=== PATIENT | female | born 1930 | race Caucasian/White ===

== ENCOUNTER 2016-09-22 09:35 | Inpatient (IN) | payer OTHER ==
[~2016-09-22] VITALS: Ht 167.6 cm; Wt 63.0 kg
[~2016-09-22 09:35] MED LIST: ASPI81CH43 PO; FURO40TA PO; METO-169 PO; POT20T PO
[2016-09-22] MEDS ORDERED: SODIUM CHLORIDE 0.9% 1,000 ML IVB ONE (11:51)
[2016-09-22 12:21] LABS: Basophils # (auto) 0.1 uL; Basophils % (auto) 0.6 % (0.0-2.0); CONDITION Y; Eosinophils # (auto) 0 uL; Eosinophils % (auto) 0.4 % (0.0-7.0); Hematocrit 41.6 % (36.0-46.0); Hemoglobin 13.8 g/dL (12.2-16.2); Lymphocytes # (auto) 1.2 uL; Lymphocytes % (auto) 10.4 % (10.0-50.0); Mean Corpuscular Hemoglobin 32.1 pg (28.0-32.0); Mean Corpuscular Hgb Conc. 33.2 g/dL (32.0-36.0); Mean Corpuscular Volume 96.9 fL (80.0-100.0); Monocytes # (auto) 0.8 uL; Monocytes % (auto) 6.7 % (0.0-12.0); Neutrophils # (auto) 9.5 uL; Neutrophils % (auto) 81.9 % (37.0-80.0); Platelet Count (auto) 213 10^3/uL (140-450); Red Cell Distribution Width 13.6 % (11.6-16.0); White Blood Cell 11.6 10^3/uL (4.4-10.8)
[2016-09-22 12:35] LABS: INR 1.22 (0.9-1.15); Partial Thromboplastin Time 25.2 sec (22.64-33.71)
[2016-09-22 12:45] LABS: Prothrombin Time 13.3 sec (9.37-12.3)
[2016-09-22 12:52] LABS: Albumin 3.3 g/dL (3.4-5.0); Alkaline Phosphatase 79 U/L (45-117); Anion Gap 6 (5-15); Aspartate Aminotransferase 18 U/L (15-37); BUN/Creatinine Ratio 47.9; Bilirubin, Total 0.7 mg/dL (0.2-1.0); Blood Urea Nitrogen 68 mg/dL (7-18); Calcium 9.2 mg/dL (8.5-10.1); Carbon Dioxide 30 mmol/L (21-32); Chloride 108 mmol/L (98-107); GFR African American 45 mL/min; GFR Non-African American 37 mL/min; Glucose 122 mg/dL (74-106); Magnesium 3.2 mg/dL (1.6-2.6); Potassium 4.7 mmol/L (3.5-5.1); Sodium 144 mmol/L (136-145); Total Protein 7.5 g/dL (6.4-8.2)
[2016-09-22] MEDS ORDERED: cefTRIAXone 1GM/50ML D5W 50 ML IV ONE (18:00)
[2016-09-22] MEDS ORDERED: HYDROcodone-ACET 5/325MG TAB PO PRN (18:15)
[2016-09-22] MEDS ORDERED: DEXTROSE (50%) 50ML SYRG IV PRN (18:15)
[2016-09-22] MEDS ORDERED: ACETAMINOPHEN 325 MG TAB PO PRN (18:15)
[2016-09-22] MEDS ORDERED: FUROSEMIDE 20 MG TAB PO ONE (18:15)
[2016-09-22] MEDS ORDERED: DOCUSATE SOD 100 MG CAP PO PRN (18:15)
[2016-09-22 19:17] LABS: B-Type Natriuretic Peptide 65.37 pg/mL (0-100)
[2016-09-22] MEDS: ENOXAPARIN SOD 30 MG/0.3 ML SYRINGE SC SCH (19:23)
[2016-09-22] MEDS: FAMOTIDINE 20 MG TAB PO SCH (19:23)
[2016-09-22] MEDS: ZINC SULFATE 220 MG CAP PO SCH (19:27)
[2016-09-22 19:32] LABS: Temperature: 23.3 C (20.0-25.0)
[2016-09-22] MEDS: ASCORBIC ACID 500 MG TAB PO SCH (21:57)
[2016-09-22] MEDS: SODIUM CHLOR 0.9% PF (SALINE LOCK) 10ML VIAL IV SCH (21:57)
[2016-09-22] MEDS: ACCU-CHEK COMFORT CURVE STRIP VI SCH (21:57)
[2016-09-22] MEDS: CLINDAMYCIN 300MG IV 50 ML IV SCH (21:57)
[2016-09-22] MEDS: InsuLIN REG 1unit/0.01ml Soln (100units/ml) SC SCH (21:57)
[2016-09-22] MEDS ORDERED: ALBUMIN 5% 250 ML IV ONE (23:30)
[2016-09-23 00:20] LABS: Urine Bilirubin Negative (Negative); Urine Blood Negative /uL (Negative); Urine Color Yellow (Yellow); Urine Glucose Normal (Normal); Urine Ketone TRACE (Negative); Urine Nitrite Negative (Negative); Urine RBC 1 /hpf (0 - 4); Urine Squamous Epithelial Cell FEW /hpf (<5); Urine Urobilinogen Normal (Negative)
[2016-09-23] MEDS ORDERED: PHENYLEPHRINE HCL 10 MG/ML VL ONE (00:50)
[2016-09-23] MEDS: PHENYLEPHRINE INJ 20 MG in SODIUM CHL 0.9% 250 ML IV SCH ×3 (01:08→15:49)
[2016-09-23 03:52] LABS: Basophils # (auto) 0 uL; Basophils % (auto) 0.1 % (0.0-2.0); CONDITION Y; Eosinophils # (auto) 0.1 uL; Eosinophils % (auto) 1.1 % (0.0-7.0); Hematocrit 37.9 % (36.0-46.0); Hemoglobin 12.6 g/dL (12.2-16.2); Lymphocytes # (auto) 1.5 uL; Lymphocytes % (auto) 15.4 % (10.0-50.0); Mean Corpuscular Hemoglobin 32.1 pg (28.0-32.0); Mean Corpuscular Hgb Conc. 33.3 g/dL (32.0-36.0); Mean Corpuscular Volume 96.3 fL (80.0-100.0); Mean Platelet Volume 9.2 fL (7.4-10.4); Monocytes # (auto) 0.9 uL; Monocytes % (auto) 8.6 % (0.0-12.0); Neutrophils # (auto) 7.5 uL; Neutrophils % (auto) 74.8 % (37.0-80.0); Platelet Count (auto) 225 10^3/uL (140-450)
[2016-09-23 04:47] LABS: Albumin 2.9 g/dL (3.4-5.0); Calcium 8.2 mg/dL (8.5-10.1); Potassium 3.6 mmol/L (3.5-5.1)
[2016-09-23 04:48] LABS: BUN/Creatinine Ratio 45.5
[2016-09-23 04:52] LABS: Bilirubin, Total 0.6 mg/dL (0.2-1.0); Total Protein 6.5 g/dL (6.4-8.2)
[2016-09-23] MEDS: CLINDAMYCIN 300MG IV 50 ML IV SCH ×3 (06:09→22:00)
[2016-09-23] MEDS: SODIUM CHLOR 0.9% PF (SALINE LOCK) 10ML VIAL IV SCH ×3 (06:09→22:00)
[2016-09-23] MEDS: InsuLIN REG 1unit/0.01ml Soln (100units/ml) SC SCH ×4 (06:49→22:00)
[2016-09-23] MEDS: ACCU-CHEK COMFORT CURVE STRIP VI SCH ×4 (06:49→22:00)
[2016-09-23] MEDS: cefTRIAXone 1GM/50ML D5W 50 ML IV SCH (08:13)
[2016-09-23] MEDS: Boost Glucose Control 8 Ounces PO SCH ×3 (08:42→18:34)
[2016-09-23] MEDS: MULTIPLE VITAMIN TAB PO SCH (11:12)
[2016-09-23] MEDS: FAMOTIDINE 20 MG TAB PO SCH (11:12)
[2016-09-23] MEDS: ASCORBIC ACID 500 MG TAB PO SCH ×2 (11:12→22:00)
[2016-09-23] MEDS: POTASSIUM CHL 10 Meq TABLET PO SCH (11:13)
[2016-09-23] MEDS: FUROSEMIDE 20 MG TAB PO SCH (11:13)
[2016-09-23] MEDS: ZINC SULFATE 220 MG CAP PO SCH (11:13)
[2016-09-23] MEDS: ENOXAPARIN SOD 30 MG/0.3 ML SYRINGE SC SCH (11:14)
[2016-09-23] MEDS ORDERED: ALBUMIN 5% 250 ML IV ONE (21:30)
[2016-09-24] MEDS: PHENYLEPHRINE INJ 20 MG in SODIUM CHL 0.9% 250 ML IV SCH ×3 (00:08→18:23)
[2016-09-24] MEDS: CLINDAMYCIN 300MG IV 50 ML IV SCH (06:00)
[2016-09-24 06:10] LABS: Basophils # (auto) 0 uL; Basophils % (auto) 0.3 % (0.0-2.0); CONDITION Y; Eosinophils # (auto) 0.3 uL; Eosinophils % (auto) 3.5 % (0.0-7.0); Hematocrit 38.7 % (36.0-46.0); Lymphocytes % (auto) 21.7 % (10.0-50.0); Mean Corpuscular Hemoglobin 32.3 pg (28.0-32.0); Mean Corpuscular Hgb Conc. 33.7 g/dL (32.0-36.0); Mean Corpuscular Volume 95.8 fL (80.0-100.0); Mean Platelet Volume 8.8 fL (7.4-10.4); Monocytes # (auto) 0.9 uL; Monocytes % (auto) 9.4 % (0.0-12.0); Neutrophils # (auto) 6.1 uL; Neutrophils % (auto) 65.1 % (37.0-80.0); Platelet Count (auto) 203 10^3/uL (140-450); Red Cell Distribution Width 13.7 % (11.6-16.0); White Blood Cell 9.3 10^3/uL (4.4-10.8)
[2016-09-24] MEDS: SODIUM CHLOR 0.9% PF (SALINE LOCK) 10ML VIAL IV SCH ×3 (06:18→22:00)
[2016-09-24 06:29] LABS: BUN/Creatinine Ratio 31.3; Calcium 8.4 mg/dL (8.5-10.1); Potassium 3.6 mmol/L (3.5-5.1)
[2016-09-24] MEDS: InsuLIN REG 1unit/0.01ml Soln (100units/ml) SC SCH ×5 (06:32→22:00)
[2016-09-24] MEDS: ACCU-CHEK COMFORT CURVE STRIP VI SCH ×5 (06:32→22:00)
[2016-09-24] MEDS: Boost Glucose Control 8 Ounces PO SCH ×3 (08:03→18:00)
[2016-09-24] MEDS: cefTRIAXone 1GM/50ML D5W 50 ML IV SCH (10:00)
[2016-09-24] MEDS: FUROSEMIDE 20 MG TAB PO SCH (10:28)
[2016-09-24] MEDS: FAMOTIDINE 20 MG TAB PO SCH (10:28)
[2016-09-24] MEDS: MULTIPLE VITAMIN TAB PO SCH (10:28)
[2016-09-24] MEDS: POTASSIUM CHL 10 Meq TABLET PO SCH (10:28)
[2016-09-24] MEDS: ZINC SULFATE 220 MG CAP PO SCH (10:28)
[2016-09-24] MEDS: ASCORBIC ACID 500 MG TAB PO SCH ×2 (10:29→22:00)
[2016-09-24] MEDS: ENOXAPARIN SOD 30 MG/0.3 ML SYRINGE SC SCH (10:29)
[2016-09-24] MEDS ORDERED: SOD CHL 0.45% 1,000 ML IV ONE (13:45)
[2016-09-25] MEDS: PHENYLEPHRINE INJ 20 MG in SODIUM CHL 0.9% 250 ML IV SCH ×4 (02:43→18:23)
[2016-09-25] MEDS: SODIUM CHLOR 0.9% PF (SALINE LOCK) 10ML VIAL IV SCH ×3 (06:00→22:26)
[2016-09-25 06:55] LABS: Basophils # (auto) 0 uL; Basophils % (auto) 0.3 % (0.0-2.0); CONDITION Y; Eosinophils # (auto) 0.3 uL; Eosinophils % (auto) 2.8 % (0.0-7.0); Hematocrit 40.1 % (36.0-46.0); Hemoglobin 13.8 g/dL (12.2-16.2); Lymphocytes # (auto) 2.3 uL; Lymphocytes % (auto) 22.8 % (10.0-50.0); Mean Corpuscular Hemoglobin 32.7 pg (28.0-32.0); Mean Corpuscular Hgb Conc. 34.3 g/dL (32.0-36.0); Mean Corpuscular Volume 95.3 fL (80.0-100.0); Mean Platelet Volume 8.8 fL (7.4-10.4); Monocytes # (auto) 0.8 uL; Monocytes % (auto) 8.6 % (0.0-12.0); Neutrophils # (auto) 6.5 uL; Neutrophils % (auto) 65.5 % (37.0-80.0); Platelet Count (auto) 210 10^3/uL (140-450); White Blood Cell 9.9 10^3/uL (4.4-10.8)
[2016-09-25 07:06] LABS: Calcium 8.3 mg/dL (8.5-10.1)
[2016-09-25] MEDS: ACCU-CHEK COMFORT CURVE STRIP VI SCH ×2 (07:45→11:30)
[2016-09-25] MEDS: InsuLIN REG 1unit/0.01ml Soln (100units/ml) SC SCH ×2 (07:45→12:09)
[2016-09-25] MEDS: Boost Glucose Control 8 Ounces PO SCH ×3 (08:30→18:23)
[2016-09-25] MEDS ORDERED: IOHEXOL 350 MG/ML 100ML IJ ONE (08:52)
[2016-09-25] MEDS: cefTRIAXone 1GM/50ML D5W 50 ML IV SCH (10:00)
[2016-09-25] MEDS: SOD CHL 0.45% 1,000 ML IV SCH ×2 (10:24→18:51)
[2016-09-25] MEDS: FAMOTIDINE 20 MG TAB PO SCH (10:30)
[2016-09-25] MEDS: ENOXAPARIN SOD 30 MG/0.3 ML SYRINGE SC SCH (10:30)
[2016-09-25] MEDS: MULTIPLE VITAMIN TAB PO SCH (10:30)
[2016-09-25] MEDS: ASCORBIC ACID 500 MG TAB PO SCH ×2 (10:30→22:26)
[2016-09-25] MEDS: ZINC SULFATE 220 MG CAP PO SCH (10:30)
[2016-09-25] MEDS: ALBUMIN 25% 100 ML IV SCH ×2 (12:41→22:26)
[2016-09-25 15:26] LABS: Vitamin B12 979 pg/mL (211-911)
[2016-09-25 15:40] LABS: Temperature: 23.3 C (20.0-25.0)
[2016-09-25] MEDS: ONDANSETRON HCL 4 MG/2 ML VIAL IV PRN (19:07)
[2016-09-25] MEDS: APIXABAN 5 MG TAB PO SCH (22:26)
[2016-09-26] VITALS (58 sets, daily range): BP systolic 80–131; BP diastolic 35–71
[2016-09-26] MEDS: ONDANSETRON HCL 4 MG/2 ML VIAL IV PRN ×2 (00:54→01:30)
[2016-09-26] MEDS: TEMAZEPAM 15 MG CAP PO PRN (02:06)
[2016-09-26] MEDS: PHENYLEPHRINE INJ 20 MG in SODIUM CHL 0.9% 250 ML IV SCH ×3 (03:43→20:23)
[2016-09-26] MEDS: SOD CHL 0.45% 1,000 ML IV SCH ×2 (04:28→16:03)
[2016-09-26] MEDS: SODIUM CHLOR 0.9% PF (SALINE LOCK) 10ML VIAL IV SCH ×3 (05:40→22:07)
[2016-09-26] MEDS: ALBUMIN 25% 100 ML IV SCH (05:40)
[2016-09-26] MEDS: cefTRIAXone 1GM/50ML D5W 50 ML IV SCH (09:26)
[2016-09-26] MEDS: FAMOTIDINE 20 MG TAB PO SCH (09:27)
[2016-09-26] MEDS: APIXABAN 5 MG TAB PO SCH ×2 (09:27→22:07)
[2016-09-26] MEDS: ZINC SULFATE 220 MG CAP PO SCH (09:27)
[2016-09-26] MEDS: MULTIPLE VITAMIN TAB PO SCH (09:27)
[2016-09-26] MEDS: ASCORBIC ACID 500 MG TAB PO SCH ×2 (09:27→22:06)
[2016-09-26] MEDS ORDERED: MIDODRINE HCL 10 MG TAB PO ONE (10:00)
[2016-09-26] MEDS: Boost Glucose Control 8 Ounces PO SCH ×3 (10:09→18:00)
[2016-09-26] MEDS: MIDODRINE HCL 10 MG TAB PO SCH ×2 (13:29→22:06)
[2016-09-27] VITALS (79 sets, daily range): BP systolic 0–134; BP diastolic 0–87
[2016-09-27] MEDS: SOD CHL 0.45% 1,000 ML IV SCH ×3 (00:41→20:30)
[2016-09-27 03:42] LABS: Basophils # (auto) 0 uL; Basophils % (auto) 0.1 % (0.0-2.0); CONDITION Y; Eosinophils # (auto) 0.1 uL; Eosinophils % (auto) 1.9 % (0.0-7.0); Hematocrit 34.3 % (36.0-46.0); Hemoglobin 11.5 g/dL (12.2-16.2); Lymphocytes % (auto) 14.7 % (10.0-50.0); Mean Corpuscular Hgb Conc. 33.4 g/dL (32.0-36.0); Mean Corpuscular Volume 95.9 fL (80.0-100.0); Mean Platelet Volume 8.8 fL (7.4-10.4); Monocytes # (auto) 0.2 uL; Monocytes % (auto) 3.5 % (0.0-12.0); Neutrophils # (auto) 5.4 uL; Neutrophils % (auto) 79.8 % (37.0-80.0); Platelet Count (auto) 222 10^3/uL (140-450); Red Cell Distribution Width 14.2 % (11.6-16.0); White Blood Cell 6.7 10^3/uL (4.4-10.8)
[2016-09-27 04:15] LABS: BUN/Creatinine Ratio 18.3; Bilirubin, Total 1.6 mg/dL (0.2-1.0); Potassium 3.7 mmol/L (3.5-5.1); Total Protein 5.7 g/dL (6.4-8.2)
[2016-09-27] MEDS: PHENYLEPHRINE INJ 20 MG in SODIUM CHL 0.9% 250 ML IV SCH ×3 (04:43→21:23)
[2016-09-27] MEDS: SODIUM CHLOR 0.9% PF (SALINE LOCK) 10ML VIAL IV SCH ×3 (06:00→22:00)
[2016-09-27] MEDS: MIDODRINE HCL 10 MG TAB PO SCH ×3 (06:30→22:21)
[2016-09-27] MEDS: Boost Glucose Control 8 Ounces PO SCH ×3 (08:00→18:00)
[2016-09-27] MEDS: ZINC SULFATE 220 MG CAP PO SCH (10:40)
[2016-09-27] MEDS: FAMOTIDINE 20 MG TAB PO SCH (10:41)
[2016-09-27] MEDS: MULTIPLE VITAMIN TAB PO SCH (10:41)
[2016-09-27] MEDS: ASCORBIC ACID 500 MG TAB PO SCH ×2 (10:41→22:04)
[2016-09-27] MEDS: APIXABAN 5 MG TAB PO SCH ×2 (10:41→22:05)
[2016-09-27] MEDS: TEMAZEPAM 15 MG CAP PO PRN (22:56)
[2016-09-28] VITALS: BP 115/49
[2016-09-28 05:16] VITALS: BP 102/60
[2016-09-28] MEDS: MIDODRINE HCL 10 MG TAB PO SCH ×3 (06:24→22:01)
[2016-09-28] MEDS: SODIUM CHLOR 0.9% PF (SALINE LOCK) 10ML VIAL IV SCH ×3 (06:24→22:01)
[2016-09-28] MEDS: SOD CHL 0.45% 1,000 ML IV SCH ×2 (06:30→17:39)
[2016-09-28 07:18] LABS: Albumin 3.2 g/dL (3.4-5.0); BUN/Creatinine Ratio 17.2; Bilirubin, Total 1.2 mg/dL (0.2-1.0); Calcium 8.3 mg/dL (8.5-10.1); Potassium 3.5 mmol/L (3.5-5.1)
[2016-09-28 09:00] VITALS: BP 106/60
[2016-09-28] MEDS: ASCORBIC ACID 500 MG TAB PO SCH ×2 (10:13→22:01)
[2016-09-28] MEDS: APIXABAN 5 MG TAB PO SCH ×2 (10:13→22:01)
[2016-09-28] MEDS: Boost Glucose Control 8 Ounces PO SCH ×3 (10:13→18:36)
[2016-09-28] MEDS: MULTIPLE VITAMIN TAB PO SCH (10:13)
[2016-09-28] MEDS: FAMOTIDINE 20 MG TAB PO SCH (10:13)
[2016-09-28] MEDS: ZINC SULFATE 220 MG CAP PO SCH (10:13)
[2016-09-28 13:00] VITALS: BP 104/56
[2016-09-28 17:00] VITALS: BP 105/61
[2016-09-28 22:00] VITALS: BP 102/56
[2016-09-29] MEDS: SOD CHL 0.45% 1,000 ML IV SCH (04:48)
[2016-09-29] MEDS: SODIUM CHLOR 0.9% PF (SALINE LOCK) 10ML VIAL IV SCH ×3 (05:51→22:16)
[2016-09-29] MEDS: MIDODRINE HCL 10 MG TAB PO SCH ×3 (05:57→22:15)
[2016-09-29 06:17] VITALS: BP 116/61
[2016-09-29 07:02] LABS: Basophils # (auto) 0 uL; Basophils % (auto) 0.3 % (0.0-2.0); CONDITION Y; Eosinophils # (auto) 0.1 uL; Eosinophils % (auto) 1.4 % (0.0-7.0); Hematocrit 32.5 % (36.0-46.0); Hemoglobin 10.8 g/dL (12.2-16.2); Lymphocytes # (auto) 1.2 uL; Lymphocytes % (auto) 24.1 % (10.0-50.0); Mean Corpuscular Hgb Conc. 33.2 g/dL (32.0-36.0); Mean Corpuscular Volume 96.6 fL (80.0-100.0); Mean Platelet Volume 8.5 fL (7.4-10.4); Monocytes # (auto) 0.3 uL; Monocytes % (auto) 6.6 % (0.0-12.0); Neutrophils # (auto) 3.3 uL; Neutrophils % (auto) 67.6 % (37.0-80.0); Platelet Count (auto) 207 10^3/uL (140-450); Red Cell Distribution Width 14.2 % (11.6-16.0); White Blood Cell 4.8 10^3/uL (4.4-10.8)
[2016-09-29 07:23] LABS: Albumin 2.9 g/dL (3.4-5.0); Bilirubin, Total 0.8 mg/dL (0.2-1.0); Calcium 8.5 mg/dL (8.5-10.1); Potassium 4.1 mmol/L (3.5-5.1); Total Protein 5.7 g/dL (6.4-8.2)
[2016-09-29 09:00] VITALS: BP 111/51
[2016-09-29] MEDS: Boost Glucose Control 8 Ounces PO SCH ×3 (09:12→18:25)
[2016-09-29] MEDS: FAMOTIDINE 20 MG TAB PO SCH (09:41)
[2016-09-29] MEDS: ASCORBIC ACID 500 MG TAB PO SCH ×2 (09:41→22:17)
[2016-09-29] MEDS: MULTIPLE VITAMIN TAB PO SCH (09:42)
[2016-09-29] MEDS: ZINC SULFATE 220 MG CAP PO SCH (09:42)
[2016-09-29] MEDS: APIXABAN 5 MG TAB PO SCH ×2 (09:42→22:16)
[2016-09-29 13:00] VITALS: BP 111/50
[2016-09-29 17:00] VITALS: BP 107/56
[2016-09-29 22:00] VITALS: BP 120/64
[2016-09-29] MEDS: QUEtiapine FUMARATE 25 MG TAB PO SCH (22:17)
[2016-09-30 05:00] VITALS: BP 114/61
[2016-09-30] MEDS: MIDODRINE HCL 10 MG TAB PO SCH ×3 (05:40→22:02)
[2016-09-30] MEDS: SODIUM CHLOR 0.9% PF (SALINE LOCK) 10ML VIAL IV SCH ×3 (05:40→22:02)
[2016-09-30 05:41] LABS: Basophils # (auto) 0 uL; Basophils % (auto) 0.7 % (0.0-2.0); CONDITION Y; Eosinophils # (auto) 0.1 uL; Eosinophils % (auto) 2.1 % (0.0-7.0); Hematocrit 31.2 % (36.0-46.0); Hemoglobin 10.4 g/dL (12.2-16.2); Lymphocytes # (auto) 1.4 uL; Lymphocytes % (auto) 29.1 % (10.0-50.0); Mean Corpuscular Hemoglobin 32.2 pg (28.0-32.0); Mean Corpuscular Hgb Conc. 33.2 g/dL (32.0-36.0); Mean Corpuscular Volume 96.8 fL (80.0-100.0); Mean Platelet Volume 8.5 fL (7.4-10.4); Monocytes # (auto) 0.4 uL; Monocytes % (auto) 8.6 % (0.0-12.0); Neutrophils # (auto) 2.8 uL; Neutrophils % (auto) 59.5 % (37.0-80.0); Platelet Count (auto) 196 10^3/uL (140-450); Red Cell Distribution Width 14.7 % (11.6-16.0); White Blood Cell 4.7 10^3/uL (4.4-10.8)
[2016-09-30 05:51] LABS: Albumin 2.8 g/dL (3.4-5.0); BUN/Creatinine Ratio 15.8; Calcium 8.2 mg/dL (8.5-10.1); Potassium 3.7 mmol/L (3.5-5.1)
[2016-09-30 06:06] LABS: Bilirubin, Total 0.7 mg/dL (0.2-1.0); Total Protein 5.5 g/dL (6.4-8.2)
[2016-09-30 09:00] VITALS: BP 108/57
[2016-09-30] MEDS: Boost Glucose Control 8 Ounces PO SCH ×3 (09:09→18:24)
[2016-09-30] MEDS ORDERED: HYDROcodone-ACET 5/325MG TAB PO PRN (09:15)
[2016-09-30] MEDS ORDERED: TEMAZEPAM 15 MG CAP PO PRN (09:15)
[2016-09-30] MEDS: ZINC SULFATE 220 MG CAP PO SCH (10:05)
[2016-09-30] MEDS: FAMOTIDINE 20 MG TAB PO SCH (10:06)
[2016-09-30] MEDS: ASCORBIC ACID 500 MG TAB PO SCH ×2 (10:06→22:02)
[2016-09-30] MEDS: MULTIPLE VITAMIN TAB PO SCH (10:06)
[2016-09-30] MEDS: APIXABAN 5 MG TAB PO SCH ×2 (10:06→22:01)
[2016-09-30 13:00] VITALS: BP 96/62
[2016-09-30 22:00] VITALS: BP 96/46
[2016-09-30] MEDS: QUEtiapine FUMARATE 25 MG TAB PO SCH (22:01)
[2016-10-01 05:00] VITALS: BP 114/62
[2016-10-01] MEDS: MIDODRINE HCL 10 MG TAB PO SCH (05:53)
[2016-10-01] MEDS: SODIUM CHLOR 0.9% PF (SALINE LOCK) 10ML VIAL IV SCH (05:53)
[2016-10-01] MEDS: Boost Glucose Control 8 Ounces PO SCH ×2 (08:00→12:00)
[2016-10-01] MEDS: FAMOTIDINE 20 MG TAB PO SCH (10:00)
[2016-10-01] MEDS ORDERED: MID10T PO (10:08)
[2016-10-01] MEDS ORDERED: APIX5TAB PO (10:08)
[2016-10-01] MEDS: ZINC SULFATE 220 MG CAP PO SCH (11:06)
[2016-10-01] MEDS: APIXABAN 5 MG TAB PO SCH (11:06)
[2016-10-01] MEDS: MULTIPLE VITAMIN TAB PO SCH (11:06)
[2016-10-01] MEDS: ASCORBIC ACID 500 MG TAB PO SCH (11:06)
[2016-10-01 11:22] VITALS: BP 102/64
[2016-10-02] MEDS ORDERED: APIXABAN 5 MG TAB PO SCH (22:00)
== END 2016-10-01 15:06 | disposition home or self-care (01) | DRG 299 ==
LOC: ER 09:35 → EDBD 09:35 → OVERFLOW 09:36 → EDUNIT# 09:36 → ICU WEST 09-25 08:45 → TELE 09-25 09:10 → ICU WEST 09-26 08:56 → TELE-CENTR 09-27 23:44 → CENTRAL 10-01 11:20
PROVIDERS: ADMIT Internal Medicine; ATTEND Internal Medicine
DX: I82.411 Acute embolism and thrombosis of right femoral vein (principal); G93.41 Metabolic encephalopathy; D68.9 Coagulation defect, unspecified; E44.0 Moderate protein-calorie malnutrition; I13.0 Hypertensive heart and chronic kidney disease with heart failure and stage 1 through stage 4 chronic kidney disease, or unspecified chronic kidney disease; I82.431 Acute embolism and thrombosis of right popliteal vein; N18.3 Chronic kidney disease, stage 3 (moderate); I82.441 Acute embolism and thrombosis of right tibial vein; I50.9 Heart failure, unspecified; G30.1 Alzheimer's disease with late onset; F02.80 Dementia in other diseases classified elsewhere, unspecified severity, without behavioral disturbance, psychotic disturbance, mood disturbance, and anxiety; R62.7 Adult failure to thrive; E83.42 Hypomagnesemia; E86.0 Dehydration; F06.30 Mood disorder due to known physiological condition, unspecified; F29 Unspecified psychosis not due to a substance or known physiological condition; I25.10 Atherosclerotic heart disease of native coronary artery without angina pectoris; K82.8 Other specified diseases of gallbladder; K80.20 Calculus of gallbladder without cholecystitis without obstruction; R32 Unspecified urinary incontinence; R09.02 Hypoxemia; E11.22 Type 2 diabetes mellitus with diabetic chronic kidney disease; Z88.5 Allergy status to narcotic agent; Z68.22 Body mass index [BMI] 22.0-22.9, adult
CPT/HCPCS: 36415; 70450; 71010; 71275; 76705; 80048; 80053; 81001; 82040; 82533; 82607; 82746; 82962; 83036; 83605; 83735; 83880; 84443; 84484; 85025; 85379; 85610; 85730; 87040; 87081; 87086; 93005; 93306; 93886; 93970; 95819; 96361; 96365; 96366; 97110; 97116; 97163; 97530; J0696; J1815; J2405; J3490

== ENCOUNTER 2016-11-01 12:13 | Inpatient (IN) | payer OTHER ==
[~2016-11-01] VITALS: Ht 165.1 cm; Wt 62.7 kg
[~2016-11-01 12:13] MED LIST changes: +APIX5TAB PO; +MID10T PO
[2016-11-01] MEDS ORDERED: SODIUM CHLORIDE 0.9% 1,000 ML IV ONE (12:54)
[2016-11-01] MEDS ORDERED: CLINDAMYCIN 600MG IV 50 ML IV ONE (13:00)
[2016-11-01 13:40] LABS: Basophils # (auto) 0 uL; Basophils % (auto) 0.2 % (0.0-2.0); CONDITION Y; Eosinophils # (auto) 0 uL; Eosinophils % (auto) 0.6 % (0.0-7.0); Hematocrit 34.5 % (36.0-46.0); Hemoglobin 11.6 g/dL (12.2-16.2); Lymphocytes # (auto) 2.1 uL; Lymphocytes % (auto) 37.3 % (10.0-50.0); Mean Corpuscular Hemoglobin 32.6 pg (28.0-32.0); Mean Corpuscular Hgb Conc. 33.7 g/dL (32.0-36.0); Mean Corpuscular Volume 96.8 fL (80.0-100.0); Mean Platelet Volume 8.4 fL (7.4-10.4); Monocytes # (auto) 0.5 uL; Monocytes % (auto) 8.8 % (0.0-12.0); Neutrophils % (auto) 53.1 % (37.0-80.0); Platelet Count (auto) 187 10^3/uL (140-450); Red Cell Distribution Width 16.8 % (11.6-16.0); White Blood Cell 5.6 10^3/uL (4.4-10.8)
[2016-11-01 13:49] LABS: Albumin 3.8 g/dL (3.4-5.0); BUN/Creatinine Ratio 20.5; Magnesium 2.6 mg/dL (1.6-2.6); Potassium 4.3 mmol/L (3.5-5.1)
[2016-11-01 13:51] LABS: Bilirubin, Total 0.8 mg/dL (0.2-1.0); Total Protein 7.7 g/dL (6.4-8.2)
[2016-11-01] MEDS ORDERED: NITROGLYCERIN 0.4 MG SL TAB SL PRN (14:15)
[2016-11-01] MEDS ORDERED: PROMETHAZINE HCL 25 MG/ML 1ML IV PRN (14:15)
[2016-11-01] MEDS ORDERED: ACETAMINOPHEN 500 MG TAB PO PRN (14:15)
[2016-11-01] MEDS ORDERED: LACTULOSE 20Gm/30ML SOLN PO PRN (14:15)
[2016-11-01] MEDS ORDERED: HYDROmorphone HCL 2 MG/ML VL IV PRN (14:15)
[2016-11-01] MEDS ORDERED: HYDROcodone-ACET 5/325MG TAB PO PRN (14:15)
[2016-11-01] MEDS ORDERED: MIDODRINE HCL 10 MG TAB PO ONE (14:30)
[2016-11-01] MEDS ORDERED: METOPROLOL SUCCINATE XL 50 MG TAB PO ONE (14:30)
[2016-11-01] MEDS ORDERED: APIXABAN 2.5 MG TAB PO ONE (14:30)
[2016-11-01] MEDS ORDERED: FUROSEMIDE 40 MG TAB PO ONE (14:30)
[2016-11-01] MEDS ORDERED: PANTOPRAZOLE 40 MG TAB PO ONE (14:30)
[2016-11-01] MEDS ORDERED: ASPirin 81 mg TAB PO ONE (14:30)
[2016-11-01 14:33] LABS: Lactic Acid w/Reflex 2.3 mmol/L (0.4-2.0)
[2016-11-01 15:16] LABS: REFLEX LACTIC ACID YES OR NO YES
[2016-11-01 16:21] LABS: Urine Bilirubin Negative (Negative); Urine Blood TRACE /uL (Negative); Urine Glucose Normal (Normal); Urine Ketone Negative (Negative); Urine Nitrite Negative (Negative); Urine RBC 2 /hpf (0 - 4); Urine Urobilinogen Normal (Negative); Urine pH 7.5 (5.0-8.0)
[2016-11-01 16:27] LABS: Urine Color Straw (Yellow)
[2016-11-01 16:54] VITALS: BP 110/65
[2016-11-01] MEDS ORDERED: MULTTAB99 PO (17:21)
[2016-11-01] MEDS ORDERED: SPIR25TA89 PO (17:21)
[2016-11-01] MEDS ORDERED: QUET100T46 PO (17:21)
[2016-11-01] MEDS ORDERED: ALPR0.254 PO (17:21)
[2016-11-01] MEDS ORDERED: DONE10TA37 PO (17:21)
[2016-11-01 17:27] VITALS: BP 110/65
[2016-11-01] MEDS ORDERED: APIXABAN 2.5 MG TAB PO SCH (22:00)
[2016-11-01] MEDS ORDERED: APIXABAN 5 MG TAB PO SCH (22:00)
[2016-11-01 22:21] VITALS: BP 122/62
[2016-11-01] MEDS: CLINDAMYCIN 600MG IV 50 ML IV SCH (22:57)
[2016-11-01] MEDS: POTASSIUM CHL 20 Meq TABLET PO SCH (22:58)
[2016-11-01] MEDS: FUROSEMIDE 40 MG TAB PO SCH (22:59)
[2016-11-01] MEDS: MIDODRINE HCL 10 MG TAB PO SCH (22:59)
[2016-11-02 04:58] VITALS: BP 101/54
[2016-11-02] MEDS: CLINDAMYCIN 600MG IV 50 ML IV SCH ×3 (06:03→21:31)
[2016-11-02] MEDS: MIDODRINE HCL 10 MG TAB PO SCH ×3 (06:03→21:32)
[2016-11-02 06:54] LABS: B-Type Natriuretic Peptide 304.21 pg/mL (0-100)
[2016-11-02 06:55] LABS: Temperature: 23.3 C (20.0-25.0)
[2016-11-02 08:22] VITALS: BP 99/58
[2016-11-02] MEDS: cefTRIAXone 1GM/50ML D5W 50 ML IV SCH (08:31)
[2016-11-02] MEDS: METOPROLOL SUCCINATE XL 50 MG TAB PO SCH (10:00)
[2016-11-02] MEDS: POTASSIUM CHL 20 Meq TABLET PO SCH ×2 (10:05→21:31)
[2016-11-02] MEDS: PANTOPRAZOLE 40 MG TAB PO SCH (10:05)
[2016-11-02] MEDS: FUROSEMIDE 40 MG TAB PO SCH ×2 (10:05→21:32)
[2016-11-02] MEDS: ASPirin 81 mg TAB PO SCH (10:05)
[2016-11-02] MEDS: APIXABAN 5 MG TAB PO SCH ×2 (10:05→21:31)
[2016-11-02 12:30] VITALS: BP 102/58
[2016-11-02] MEDS: LORazepam 0.5 MG TAB PO PRN (18:40)
[2016-11-02 20:46] VITALS: BP 90/51
[2016-11-02] MEDS: MULTIPLE VITAMINS W/ MINERALS TAB PO SCH (21:30)
[2016-11-02] MEDS: ASCORBIC ACID 500 MG TAB PO SCH (21:32)
[2016-11-03] MEDS: TEMAZEPAM 15 MG CAP PO PRN (01:25)
[2016-11-03 05:10] LABS: Basophils # (auto) 0 uL; Basophils % (auto) 0.3 % (0.0-2.0); CONDITION Y; Eosinophils # (auto) 0.3 uL; Eosinophils % (auto) 3.8 % (0.0-7.0); Hematocrit 30.8 % (36.0-46.0); Hemoglobin 10.3 g/dL (12.2-16.2); Lymphocytes # (auto) 1.3 uL; Lymphocytes % (auto) 19.3 % (10.0-50.0); Mean Corpuscular Hemoglobin 32.7 pg (28.0-32.0); Mean Corpuscular Hgb Conc. 33.4 g/dL (32.0-36.0); Mean Corpuscular Volume 97.9 fL (80.0-100.0); Mean Platelet Volume 8.8 fL (7.4-10.4); Monocytes # (auto) 0.4 uL; Monocytes % (auto) 5.8 % (0.0-12.0); Neutrophils # (auto) 4.6 uL; Neutrophils % (auto) 70.8 % (37.0-80.0); Red Cell Distribution Width 17.2 % (11.6-16.0); White Blood Cell 6.6 10^3/uL (4.4-10.8)
[2016-11-03 05:13] LABS: Platelet Count (auto) 131 10^3/uL (140-450)
[2016-11-03 05:37] VITALS: BP 123/70
[2016-11-03 05:51] LABS: BUN/Creatinine Ratio 17.2; Calcium 8.2 mg/dL (8.5-10.1); Potassium 3.9 mmol/L (3.5-5.1)
[2016-11-03] MEDS: CLINDAMYCIN 600MG IV 50 ML IV SCH ×3 (06:09→22:12)
[2016-11-03] MEDS: MIDODRINE HCL 10 MG TAB PO SCH ×3 (06:09→22:15)
[2016-11-03 09:00] VITALS: BP 94/43
[2016-11-03] MEDS: APIXABAN 5 MG TAB PO SCH ×2 (09:09→22:12)
[2016-11-03] MEDS: PANTOPRAZOLE 40 MG TAB PO SCH (09:09)
[2016-11-03] MEDS: MULTIPLE VITAMINS W/ MINERALS TAB PO SCH (09:09)
[2016-11-03] MEDS: POTASSIUM CHL 20 Meq TABLET PO SCH ×2 (09:10→22:14)
[2016-11-03] MEDS: METOPROLOL SUCCINATE XL 50 MG TAB PO SCH (09:10)
[2016-11-03] MEDS: ASCORBIC ACID 500 MG TAB PO SCH ×2 (09:10→22:15)
[2016-11-03] MEDS: ASPirin 81 mg TAB PO SCH (09:10)
[2016-11-03] MEDS: cefTRIAXone 1GM/50ML D5W 50 ML IV SCH (09:12)
[2016-11-03] MEDS: FUROSEMIDE 40 MG TAB PO SCH ×2 (10:00→22:15)
[2016-11-03 13:00] VITALS: BP 95/55
[2016-11-03] MEDS: LORazepam 0.5 MG TAB PO PRN (14:19)
[2016-11-03 17:23] VITALS: BP 106/67
[2016-11-03 22:20] VITALS: BP 130/62
[2016-11-04 05:21] VITALS: BP 105/77
[2016-11-04 05:29] LABS: Basophils # (auto) 0 uL; Basophils % (auto) 0.3 % (0.0-2.0); CONDITION Y; Eosinophils # (auto) 0.2 uL; Eosinophils % (auto) 3.5 % (0.0-7.0); Hematocrit 33.2 % (36.0-46.0); Hemoglobin 10.9 g/dL (12.2-16.2); Lymphocytes # (auto) 1.4 uL; Mean Corpuscular Hemoglobin 32.3 pg (28.0-32.0); Mean Corpuscular Hgb Conc. 32.8 g/dL (32.0-36.0); Mean Corpuscular Volume 98.4 fL (80.0-100.0); Mean Platelet Volume 8.9 fL (7.4-10.4); Monocytes # (auto) 0.4 uL; Monocytes % (auto) 7.3 % (0.0-12.0); Neutrophils # (auto) 3.2 uL; Neutrophils % (auto) 61.9 % (37.0-80.0); Platelet Count (auto) 159 10^3/uL (140-450); Red Cell Distribution Width 17.3 % (11.6-16.0); White Blood Cell 5.1 10^3/uL (4.4-10.8)
[2016-11-04] MEDS: CLINDAMYCIN 600MG IV 50 ML IV SCH ×3 (05:30→21:57)
[2016-11-04] MEDS: MIDODRINE HCL 10 MG TAB PO SCH ×3 (05:30→21:59)
[2016-11-04 05:52] LABS: Calcium 8.6 mg/dL (8.5-10.1)
[2016-11-04 09:00] VITALS: BP 117/74
[2016-11-04] MEDS: cefTRIAXone 1GM/50ML D5W 50 ML IV SCH (10:34)
[2016-11-04] MEDS: APIXABAN 5 MG TAB PO SCH ×2 (10:35→21:58)
[2016-11-04] MEDS: ASPirin 81 mg TAB PO SCH (10:35)
[2016-11-04] MEDS: MULTIPLE VITAMINS W/ MINERALS TAB PO SCH (10:35)
[2016-11-04] MEDS: POTASSIUM CHL 20 Meq TABLET PO SCH ×2 (10:35→21:58)
[2016-11-04] MEDS: ASCORBIC ACID 500 MG TAB PO SCH ×2 (10:35→21:59)
[2016-11-04] MEDS: PANTOPRAZOLE 40 MG TAB PO SCH (10:35)
[2016-11-04] MEDS: FUROSEMIDE 40 MG TAB PO SCH ×2 (10:36→22:06)
[2016-11-04] MEDS: METOPROLOL SUCCINATE XL 50 MG TAB PO SCH (10:36)
[2016-11-04 13:00] VITALS: BP 122/65
[2016-11-04] MEDS: LORazepam 0.5 MG TAB PO PRN ×2 (14:10→21:59)
[2016-11-04 17:08] VITALS: BP 116/67
[2016-11-04 21:13] VITALS: BP 100/56
[2016-11-05 05:11] VITALS: BP 101/58
[2016-11-05] MEDS: MIDODRINE HCL 10 MG TAB PO SCH ×2 (05:35→14:21)
[2016-11-05] MEDS: CLINDAMYCIN 600MG IV 50 ML IV SCH ×2 (05:35→16:53)
[2016-11-05 07:12] LABS: Basophils # (auto) 0 uL; Basophils % (auto) 0.4 % (0.0-2.0); CONDITION Y; Eosinophils # (auto) 0.1 uL; Hematocrit 30.6 % (36.0-46.0); Hemoglobin 10.4 g/dL (12.2-16.2); Lymphocytes # (auto) 1.8 uL; Lymphocytes % (auto) 36.1 % (10.0-50.0); Mean Corpuscular Hemoglobin 32.7 pg (28.0-32.0); Mean Corpuscular Hgb Conc. 33.9 g/dL (32.0-36.0); Mean Corpuscular Volume 96.4 fL (80.0-100.0); Mean Platelet Volume 8.5 fL (7.4-10.4); Monocytes # (auto) 0.4 uL; Neutrophils # (auto) 2.6 uL; Neutrophils % (auto) 52.5 % (37.0-80.0); Platelet Count (auto) 160 10^3/uL (140-450); Red Cell Distribution Width 17.1 % (11.6-16.0); White Blood Cell 4.9 10^3/uL (4.4-10.8)
[2016-11-05 07:32] LABS: BUN/Creatinine Ratio 12.7; Calcium 8.3 mg/dL (8.5-10.1); Potassium 3.8 mmol/L (3.5-5.1)
[2016-11-05 08:00] VITALS: BP 101/58
[2016-11-05 09:00] VITALS: BP 99/65
[2016-11-05] MEDS: MULTIPLE VITAMINS W/ MINERALS TAB PO SCH (09:57)
[2016-11-05] MEDS: PANTOPRAZOLE 40 MG TAB PO SCH (09:57)
[2016-11-05] MEDS: APIXABAN 5 MG TAB PO SCH (09:58)
[2016-11-05] MEDS: POTASSIUM CHL 20 Meq TABLET PO SCH (09:58)
[2016-11-05] MEDS: ASCORBIC ACID 500 MG TAB PO SCH (09:59)
[2016-11-05] MEDS: ASPirin 81 mg TAB PO SCH (09:59)
[2016-11-05] MEDS: FUROSEMIDE 40 MG TAB PO SCH (09:59)
[2016-11-05] MEDS: METOPROLOL SUCCINATE XL 50 MG TAB PO SCH (10:00)
[2016-11-05] MEDS: cefTRIAXone 1GM/50ML D5W 50 ML IV SCH (10:04)
[2016-11-05 13:00] VITALS: BP 111/64
[2016-11-05] MEDS ORDERED: POTA10TA34 PO (16:45)
[2016-11-05 16:55] VITALS: BP 116/65
[2016-11-05 22:52] VITALS: BP 108/64
[2016-11-06] MEDS: APIXABAN 5 MG TAB PO SCH ×3 (00:23→22:24)
[2016-11-06] MEDS: CLINDAMYCIN 600MG IV 50 ML IV SCH ×4 (00:23→22:24)
[2016-11-06] MEDS: POTASSIUM CHL 20 Meq TABLET PO SCH ×3 (00:23→22:24)
[2016-11-06] MEDS: MIDODRINE HCL 10 MG TAB PO SCH ×4 (00:25→22:25)
[2016-11-06] MEDS: ASCORBIC ACID 500 MG TAB PO SCH ×3 (00:25→22:25)
[2016-11-06] MEDS: FUROSEMIDE 40 MG TAB PO SCH ×3 (00:25→22:25)
[2016-11-06 05:52] VITALS: BP 113/70
[2016-11-06 08:00] VITALS: BP 113/70
[2016-11-06 09:00] VITALS: BP 130/68
[2016-11-06] MEDS: cefTRIAXone 1GM/50ML D5W 50 ML IV SCH (09:55)
[2016-11-06] MEDS: MULTIPLE VITAMINS W/ MINERALS TAB PO SCH (10:00)
[2016-11-06] MEDS: PANTOPRAZOLE 40 MG TAB PO SCH (10:01)
[2016-11-06] MEDS: ASPirin 81 mg TAB PO SCH (10:01)
[2016-11-06] MEDS: METOPROLOL SUCCINATE XL 50 MG TAB PO SCH (10:01)
[2016-11-06 13:00] VITALS: BP 108/63
[2016-11-06] MEDS: LORazepam 0.5 MG TAB PO PRN (14:03)
[2016-11-06 17:22] VITALS: BP 116/67
[2016-11-06 21:41] VITALS: BP 105/63
[2016-11-06] MEDS: TEMAZEPAM 15 MG CAP PO PRN (22:26)
[2016-11-07 04:36] VITALS: BP 113/64
[2016-11-07] MEDS: CLINDAMYCIN 600MG IV 50 ML IV SCH ×2 (05:31→14:18)
[2016-11-07] MEDS: MIDODRINE HCL 10 MG TAB PO SCH ×2 (05:31→14:18)
[2016-11-07 08:00] VITALS: BP 105/63
[2016-11-07] MEDS: cefTRIAXone 1GM/50ML D5W 50 ML IV SCH (09:39)
[2016-11-07] MEDS: PANTOPRAZOLE 40 MG TAB PO SCH (09:39)
[2016-11-07] MEDS: MULTIPLE VITAMINS W/ MINERALS TAB PO SCH (09:39)
[2016-11-07] MEDS: ASPirin 81 mg TAB PO SCH (09:39)
[2016-11-07] MEDS: POTASSIUM CHL 20 Meq TABLET PO SCH (09:40)
[2016-11-07] MEDS: APIXABAN 5 MG TAB PO SCH (09:40)
[2016-11-07] MEDS: ASCORBIC ACID 500 MG TAB PO SCH (09:40)
[2016-11-07] MEDS: FUROSEMIDE 40 MG TAB PO SCH (09:41)
[2016-11-07] MEDS: METOPROLOL SUCCINATE XL 50 MG TAB PO SCH (09:41)
[2016-11-07 14:52] VITALS: BP 114/76
== END 2016-11-07 17:30 | disposition home or self-care (01) | DRG 871 ==
LOC: EDBD 12:13 → ER 12:13 → TELE 12:14 → TELE-WESTW 16:51
PROVIDERS: ADMIT Internal Medicine; ATTEND Family Medicine
DX: A41.9 Sepsis, unspecified organism (principal); I50.33 Acute on chronic diastolic (congestive) heart failure; L03.115 Cellulitis of right lower limb; N39.0 Urinary tract infection, site not specified; L03.116 Cellulitis of left lower limb; G30.9 Alzheimer's disease, unspecified; F02.80 Dementia in other diseases classified elsewhere, unspecified severity, without behavioral disturbance, psychotic disturbance, mood disturbance, and anxiety; I11.0 Hypertensive heart disease with heart failure; L89.90 Pressure ulcer of unspecified site, unspecified stage; I89.0 Lymphedema, not elsewhere classified; Z82.3 Family history of stroke; E78.5 Hyperlipidemia, unspecified; Z80.6 Family history of leukemia; Z85.038 Personal history of other malignant neoplasm of large intestine; Z85.3 Personal history of malignant neoplasm of breast; Z88.5 Allergy status to narcotic agent
CPT/HCPCS: 36415; 51702; 76705; 80048; 80053; 81001; 83605; 83735; 83880; 84443; 85025; 85379; 85652; 87040; 87077; 87186; 93005; 94761; 96361; 96374; J0696; J3490

== ENCOUNTER → 2016-11-13 | Outpatient (CLI) | payer OTHER ==
[~2016-11-13] MED LIST changes: +ALPR0.254 PO; +DONE10TA37 PO; +MULTTAB99 PO; -POT20T PO; +POTA10TA34 PO; +SPIR25TA89 PO
[2016-11-13 10:18] LABS: Basophils # (auto) 0 uL; Basophils % (auto) 0.8 % (0.0-2.0); Eosinophils # (auto) 0.2 uL; Eosinophils % (auto) 3.4 % (0.0-7.0); Hematocrit 32.4 % (36.0-46.0); Hemoglobin 10.8 g/dL (12.2-16.2); Lymphocytes # (auto) 1.6 uL; Lymphocytes % (auto) 32.2 % (10.0-50.0); Mean Corpuscular Hemoglobin 32.6 pg (28.0-32.0); Mean Corpuscular Hgb Conc. 33.2 g/dL (32.0-36.0); Mean Corpuscular Volume 97.9 fL (80.0-100.0); Mean Platelet Volume 7.5 fL (7.4-10.4); Monocytes # (auto) 0.3 uL; Monocytes % (auto) 6.3 % (0.0-12.0); Neutrophils # (auto) 2.9 uL; Neutrophils % (auto) 57.3 % (37.0-80.0); Platelet Count (auto) 195 10^3/uL (140-450); Red Cell Distribution Width 16.7 % (11.6-16.0); White Blood Cell 5.1 10^3/uL (4.4-10.8)
[2016-11-13 10:50] LABS: Albumin 3.6 g/dL (3.4-5.0); BUN/Creatinine Ratio 20.5; Bilirubin, Total 0.5 mg/dL (0.2-1.0); Calcium 9.3 mg/dL (8.5-10.1); Total Protein 7.6 g/dL (6.4-8.2)
== END | disposition home or self-care (01) ==
LOC: LAB 09:40
PROVIDERS: ATTEND Internal Medicine
DX: I10 Essential (primary) hypertension (principal); R78.81 Bacteremia
CPT/HCPCS: 36415; 80053; 85025; 87040

== ENCOUNTER → 2018-03-26 | Outpatient (CLI) | payer OTHER ==
[~2018-03-26] MED LIST changes: -DONE10TA37 PO; +DONE10TA40 PO; -MID10T PO; -POTA10TA34 PO; +POTA1TAB61 PO; +SPIR25TA8 PO; -SPIR25TA89 PO
[2018-03-26 11:46] LABS: Urine Bacteria NONE SEEN /hpf (None Seen); Urine Blood 3+ /uL (Negative); Urine Mucus FEW (None Seen); Urine Specific Gravity 1.018 (1.001-1.035); Urine WBC 80 /hpf (0 - 5)
== END | disposition home or self-care (01) ==
LOC: LAB 10:45
PROVIDERS: ATTEND Internal Medicine
DX: R31.9 Hematuria, unspecified (principal)
CPT/HCPCS: 81001; 87086; 87088; 87186

== ENCOUNTER → 2018-07-09 | Outpatient (CLI) | payer OTHER ==
[2018-07-09 09:05] LABS: Basophils # (auto) 0 uL; Eosinophils # (auto) 0.1 uL; Eosinophils % (auto) 2.1 % (0.0-7.0); Hematocrit 38.4 % (36.0-46.0); Hemoglobin 12.7 g/dL (12.2-16.2); Lymphocytes % (auto) 28.3 % (10.0-50.0); Mean Corpuscular Hemoglobin 32.4 pg (28.0-32.0); Mean Corpuscular Volume 98.2 fL (80.0-100.0); Monocytes # (auto) 0.3 uL; Monocytes % (auto) 7.2 % (0.0-12.0); Neutrophils # (auto) 2.2 uL; Neutrophils % (auto) 61.4 % (37.0-80.0); Nucleated Red Blood Cells % 0.1 %; Platelet Count (auto) 128 10^3/uL (140-450); Red Blood Cells 3.91 10^6/uL (4.0-5.20); Red Cell Distribution Width 13.2 % (11.8-14.3); White Blood Cell 3.6 10^3/uL (4.4-10.8)
[2018-07-09 10:28] LABS: Albumin 3.9 g/dL (3.4-5.0); BUN/Creatinine Ratio 28.1; Calcium 9.7 mg/dL (8.5-10.1); Magnesium 2.4 mg/dL (1.6-2.6); Potassium 4.1 mmol/L (3.5-5.1)
[2018-07-09 10:32] LABS: Bilirubin, Total 0.4 mg/dL (0.2-1.0); Total Protein 7.5 g/dL (6.4-8.2)
== END | disposition home or self-care (01) ==
LOC: LAB 08:41
PROVIDERS: ATTEND Internal Medicine
DX: I48.2 Chronic atrial fibrillation (principal); I11.0 Hypertensive heart disease with heart failure; I50.32 Chronic diastolic (congestive) heart failure
CPT/HCPCS: 36415; 80053; 80061; 83735; 84439; 84443; 85025; 85652